=== PATIENT | female | born 2000 | race Caucasian/White ===

== ENCOUNTER 2021-04-03 09:01 | Emergency (ER) | payer OTHER, SELFPAY ==
[2021-04-03 09:15] VITALS: BP 104/58; PULSE 100; RESP 16; TEMP 36.3; O2SAT 100
--- OUTSIDE RECORDS SUMMARY | 2021-04-03 09:24 | XMS_ITS ---
:2000 Author Organization [facility] Address [address] [place] [id number] Care Team Providers Name Role Phone Unavailable Primary Care Physician Unavailable Lyla Echevarria Unavailable Unavailable Allergies and Adverse Reactions Name Reaction Notes NO KNOWN DRUG ALLERGIES - Phreesia 02/22 Medications Active Name Start Date Estimated Completion SIG Comment s Date tramadol 50 mg oral 02/29/2020 take 1 tablet (50 tablet mg) by oral route every 4-6 hours as needed Problem List Description Status Onset Flexor tendon laceration of finger with open wound Active 02/24/2020 Status post surgery Active 03/07/2020 Vital Signs Date Time BP-Sys(mm[Hg] BP-Daxa(mm[Hg]) HR(bpm) RR(rpm) Temp WT HT HC BMI BSA BMI O2 Percentile Sat( %) 4:37: 110 61 20.7 1.46 2020 00 PM lbs in 841 54 kg/m m2 2 Social History Name Description Comments Tobacco Never smoker - Phreesia 0 Alcohol Use Never - Phreesia 0 Single - Phreesia 0 History of Procedures Date Ordered Description Order Status 02/24/2020 12:00 AM AUTH Surgery Reviewed History of Past Illness Name Date of Onset Comments none - Phreesia 0 Flexor tendon laceration of finger with 02/24/2020 open wound Status post surgery 03/07/2020 Laceration of flexor muscle, fascia and Feb 24 2020 3:16PM tendon of unspecified finger at forearm level, initial encounter Laceration of flexor muscle, fascia and Mar 07 2020 10:57AM tendon of unspecified finger at forearm level, initial encounter Unspecified open wound of unspecified Mar 07 2020 10:57AM finger without damage to nail, initial encounter Status post surgery Mar 07 2020 10:57AM Laceration of flexor muscle, fascia and Mar 07 2020 11:15AM tendon of unspecified finger at forearm level, initial encounter Unspecified open wound of unspecified Mar 07 2020 11:15AM finger without damage to nail, initial encounter Status post surgery Mar 07 2020 11:15AM Laceration of flexor muscle, fascia and Mar 10 2020 2:33PM tendon of unspecified finger at forearm level, initial encounter Unspecified open wound of unspecified Mar 10 2020 2:33PM finger without damage to nail, initial encounter Status post surgery Mar 10 2020 2:33PM Laceration of flexor muscle, fascia and Apr 13 2020 10:28AM tendon of unspecified finger at forearm level, initial encounter Unspecified open wound of unspecified Apr 13 2020 10:28AM finger without damage to nail, initial encounter Status post surgery Apr 13 2020 10:28AM Payers Insurance Name Company Name Plan Name Plan Number Policy Number Policy Start Date Group Number Medicaid Medicaid [id number] N/A History of Encounters Visit Date Visit Type Provider 04/13/2020 Office Visits Pedro Pablo Walker MD 03/10/2020 Office Visits Pedro Pablo Walker MD 03/07/2020 Office Visits Pedro Pablo Walker MD 03/01/2020 ASC Pedro Pablo Walker MD 02/24/2020 Office Visits Pedro Pablo Walker MD
--- OUTSIDE RECORDS SUMMARY | 2021-04-03 09:24 | XMS_ITS ---
:2000 Author Care Team Providers Name Role Phone Rupali Gabrielbeth Primary Care Provider Unavailable Allergies Code Code System Name Reaction Severity Status Onset NKDA ? Medications Name Status Start Date Stop Date ? ? Condoms-Candelario Lubricated Active ? Not avai lable Use as needed for STI prevention. ibuprofen 800 mg tablet Active ? Not avai lable 1 tab tid for pain prn Mifeprex 200 mg tablet Active ? Not avail able Take by oral route. misoprostol 200 mcg tablet Active ? Not a vailable Take 4 tablets every day by oral route for 1 day. promethazine 25 mg tablet Active ? Not av ailable Take 1 tablet every 4 hours by oral route as needed. Problems No Known Problems Procedures Date Name Performed by ? 07/02/2019 Appendectomy Information not avai lable 01/23/2019 US, Pelvis, Limited [facility] Clia: [id number] [address] [place] [address] (Work Place) 12/13/2019 US, Pelvis, Limited [facility] Clia: [id number] [address] [place] [address] (Work Place) Results Lab Results Date Name Specimen Result Interpretation Description Value Range Status Address ? 12/13/2019 CT + NG UR ? Chlamydia not detected not Fi nal [facility] DNA, PCR, detected (Cl-0 462): Urine [address], [place] ? ? UR ? Gonorrhea not detected not Final [facility] detected (Cl-0462 ): [address], [place] 01/23/2019 CT + NG CVX ? Chlamydia not detected not Fi nal [facility] DNA, PCR, detected (Cl-0 462): Cervical [address], [place] ? ? CVX ? Gonorrhea not detected not Final [facility] detected (Cl-0462 ): [address], [place] 01/23/2019 Biopsy, Tissue ? Pathologist ? ? Final [facility] - [facility] b: [address] 01/23/2019 Surgical ? A Source ? ? Final Q uest Pathology Diagnos tics Study - [facility] : [address] ? ? ? A Gross ? ? Final [facility] Description Diagn ostics - [facility] : [address] ? ? ? A Diagnosis ? ? Final Ques t Diagnostic s - [facility] : [address] 01/23/2019 Exam under ? Type of Moderate ? ? In-Office Anesthesia Anesthesia Or antwon: (PROC) Given Internal U se Only DO No t Attach Compendium DO Not Attach Compendium , Do Not Delete/maría elena ge 01/23/2019 US, ? Interpretatio - ? ? [facility] Pelvis, n Definite Parenth ood Limited [facility] Clia: [id number] : [address], [place] ? US, ? Interpretatio - ? ? [facility] Pelvis, n Definite Parenth ood Limited [facility] Clia: [id number] : [address], [place] ? Hemoglobin ? Hgb 14.0 ? ? Plan[facility] d (Hb), [facility]ne [facility], Blood Cl-0610 Clia: [id number] : [address], [place] ? Rh Immune ? Rh Factor positive ? ? P lanned Globulin Parentho od Screening Of Sne Cl-0610 Clia: [id number] : [address], [place] ? ? Result positive ? ? Plan jakub Test, Test Pa renthood Urine Of Sne Cl[facility]0610 Clia: [id number] : [address], [place] ? ? ? Status Final ? ? Planned Test Pa renthood Of Sne [facility]10 Clia: [id number] : [address], [place] Past Encounters 12/13/2019 Termination of ; Blood Group Ty ping; Venereal Disease Screening; Sheath Contraception Maisha Gabriel, [employer]: [address] [place] [address], Ph. Social History Tobacco Smoking Status Never Smoker Vaccine List None recorded. Plan of Care Reminders Provider Appointments None ? ? recorded. Lab None ? ? recorded. Referral None ? ? recorded. Procedures None ? ? recorded. Surgeries None ? ? recorded. Imaging None ? ? recorded. Vitals 12/13/2019 09:00AM Medication Height 5 ft 1 in 01/18/2019 01:50PM Test Height Weight BMI Blood Pressure 5 ft 1 in 108 lbs 20.4 kg/m2 102/62 mm[Hg]
--- NOTE | 2021-04-03 09:32 | DI.US_ITS ---
Exam(s) US PELVIS EXAM: US PELVIS CLINICAL HISTORY: RLQ pain, hx of 4.3 cm right ovarian cyst TECHNIQUE: Ultrasound performed using standard protocol. COMPARISON: No exams were available for comparison FINDINGS: Pelvic ultrasound was performed transabdominally and transvaginally. Uterus measures 7.0 x 3.5 x 4.5 cm and has an unremarkable myometrial appearance, the endometrial str ipe is homogeneous and measures 3-4 millimeters in thickness. There is free fluid in the cul-de-sac and in the right adnexal region, question recently ruptured ova tony cyst. No right ovarian cyst identified. Right ovary measures 27 x 30 x 20 millimeters. Left o vary contains a 26 x 20 x 20 millimeter in diameter cyst with some low-level internal echoes. No Dop pler abnormality. Left ovary overall measures 59 x 42 x 59 millimeters. IMPRESSION: Findings suggestive of recently ruptured right ovarian cyst. Left ovarian simple cyst is noted with low-level internal echoes as well. DATA REPOSITORY:
[2021-04-03 09:41] LABS: Bilirubin Negative (Negative); Blood Trace-intact (Negative); Clarity Clear (Clear); Glucose Negative (Negative); Ketones Negative (Negative); Leukocyte Esterase Negative (Negative); Nitrite Negative (Negative); Specific Gravity 1.025 (1.005-1.025); Urobilinogen 0.2 EU/dL (Up TO 0.2)
[2021-04-03 09:51] LABS: Bacteria Rare HPF (Negative); C & S Indicated? No; Casts Negative LPF (Negative); Crystals Negative HPF (Negative); Epithelial Cells Few HPF (Negative); Mucus Moderate (Negative); WBC 0-2 HPF (0-5)
[2021-04-03] MEDS: ACETAMINOPHEN 1,000 MG/100 ML BTL 400 MG IVPB (09:59)
[2021-04-03 10:02] LABS: Abs Immature Grans 0.06 10^3/uL (0.0-0.06); Absolute Basophil Count 0.06 10^3/uL (0.0-0.2); Absolute Eosinophil Count 0.21 10^3/uL (0.0-0.7); Absolute Lymphocyte Count 2.42 10^3/uL (1.2-3.4); Absolute Monocyte Count 0.69 10^3/uL (0.1-0.8); Basophils % 0.6; Eosinophils % 2.2; HGB 12.7 g/dL (11.2-15.7); Immature Grans % 0.6; Lymphocytes % 25.4; MCH 30.4 pg (27.0-33.0); MCHC 32.6 % (32.0-36.0); MCV 93.3 fL (80-95); MPV 9.5 fL (8.0-11.0); Monocytes % 7.2; Nucleated RBC 0 %; Platelet Count 301 10^3/uL (130-400); RBC 4.18 10^6/uL (3.93-5.22); RDW 12.9 % (11.7-14.6); RDW-SD 44.4 fL; WBC 9.54 10^3/uL (4.4-10.8)
--- NOTE | 2021-04-03 10:05 | ED.GENADUL_ITS ---
Discharge Plan Disposition Patient Disposition: HOME Condition: Good Discharge Details Clinical Impression: Pelvic pain Primary Care Provider: Marianne,Local ED Provider: Cori Gutierrez Home Meds and New Rx's Prescriptions: No Action doxycycline hyclate 100 mg Capsule 100 mg PO BID RF: 0 Discharge Instructions Instructions: Ruptured Ovarian Cyst (ED) Additional Instructions: Take ibuprofen 600 mg every 8 hours with food for pain You may take Tylenol 650 to 1 g every 6 hours as needed for discomfort Warm compresses, activity as tolerated You do this now on your left ovary, I recommend repeat ultrasound evaluation in the next 2-3 cycles with your DISPLAY COORDINATOR doctor when you return home Should you have worsening pain, weakness, or with any new or progressing symptoms, please return to the emergency room for reevaluation Medical Decision Making Patient appears well, she reports symptomatic improvement Discussed radiology interpretation with Dr. De La Cruz, patient with free fluid in her pelvis likely consistent with ruptured ovarian cyst, made aware regarding left ovarian cyst, no evidence of torsion per radiology interpretation Patient declined need for opiate analgesia She will take ibuprofen and Tylenol, she is resting comfortably at time of reevaluation He did consider pelvic inflammatory disease and other concerning reasons for her pain, however given her recent diagnosis of right ovarian cyst with free fluid in her pelvis, I do suspect that this is likely the cause of her pain, she is not unstable at time of my evaluation, she is given low threshold to return should she have new or worsening complaints Hemodynamically stable Pain controlled at time of discharge home Repeat ultrasound in 2-3 cycles recommended test negative Lab Data Lab results reviewed: Yes I reviewed the patient's lab results. HPI General Mode of arrival: ambulatory . Date/Time Provider Initiated Documentation: 04/03/21 09:27 . Limitations to Documentation: no limitations . Information obtained by: patient . HPI Narrative: This 20-year-old female presents with right lower quadrant abdominal pain. She states that her pain started abruptly during intercourse this morning. She states it radiates through to her back. She denies any fever or chills. She denies chest pain or shortness of breath. She denies any nausea or vomiting. The pain is been constant since onset about 3:00. She describes the pain as sharp. Denies history of similar pain in the past. 6 600 mg of ibuprofen prior to arrival. Last menstrual period ended 3 days ago denies chance of . Sexually active monogamous with her partner of 6 years. Denies any urinary complaints. Status post appendectomy several years ago. Related Data Home Medications Medication Instructions Recorded Confirmed doxycycline hyclate 100 mg PO BID 04/03/21 04/03/21 Allergies Allergy/AdvReac Type Severity Reaction Status Date / Time No Known Allergies Allergy Unverified 04/03/21 09:21 General Stated Complaint: DISPLAY COORDINATOR ERNESTINE: 3 Review of Systems All systems reviewed & are unremarkable except as noted in HPI and below PFSH Social History Smoking/Tobacco Use Status: Current every day Tobacco Type: e-cigarettes Smoking risk assessment performed?: Yes Alcohol Intake: never Drug use: Daily Substance use type: marijuana Do you feel safe at home: Yes Do you feel safe in your relationship?: Yes Exam Const General: cooperative, comfortable and no acute distress Eyes Sclera: sclerae normal Resp Effort & Inspection: normal respiratory effort Cardio Rate: regular rate GI Other: Right lower quadrant abdominal tenderness, no rebound or guarding, suprapubic tenderness, no CVA tenderness Skin General skin exam: no rashes or lesions noted Neuro General: patient alert and patient oriented x3 Psych Appearance: grossly normal Course Vital Signs Vital signs: Vital Signs Temperature 36.3 C L 04/03/21 09:15 Pulse 100 H 04/03/21 09:15 Respiratory Rate 16 04/03/21 09:15 Blood Pressure 104/58 L 04/03/21 09:15 Pulse Oximetry 100 04/03/21 09:15 Temperature 36.3 C L 04/03/21 09:15 Temperature Source Skin 04/03/21 09:15 Pulse 100 H 04/03/21 09:15 Respiratory Rate 16 04/03/21 09:15 Respiratory Effort Non-Labored 04/03/21 09:15 Blood Pressure 104/58 L 04/03/21 09:15 Blood Pressure Position Standing 04/03/21 09:15 Pulse Oximetry 100 04/03/21 09:15 Oxygen Delivery Method Room Air 04/03/21 09:15 Oxygen Flow Rate 0 04/03/21 09:15 Pain Level 7 04/03/21 09:15 Lab/Test Results Lab/Test Results: Laboratory Tests Range/Units 04/03/21 09:30 Urine Color (Yellow) Yellow Urine Clarity (Clear) Clear Urine pH (5-8) 7.0 Ur Specific [place] (1.005-1.025) 1.025 Urine Protein (Negative) mg/dL Negative Urine Ketones (Negative) mg/dL Negative Urine Blood (Negative) Trace-intact H Urine Nitrite (Negative) Negative Urine Bilirubin (Negative) Negative Urine Urobilinogen (Up TO 0.2) EU/dL 0.2 Ur Leukocyte Esterase (Negative) Negative Urine RBC (0-2) HPF Urine WBC (0-5) HPF 0-2 Ur Epithelial Cells (Negative) HPF Few Urine Crystals (Negative) HPF Negative Urine Bacteria (Negative) HPF Rare Urine Casts (Negative) LPF Negative Urine Mucus (Negative) Moderate Ur Culture Indicated? No Urine Glucose (Negative) mg/dL Negative POC- Test(urine) Negative
[2021-04-03 10:15] LABS: ALT 20 U/L (14-59); AST 14 U/L (15-37); Albumin 3.9 g/dL (3.4-5.0); Alkaline Phosphatase 45 U/L (46-116); Anion Gap 6.8 mmol/L (3-11); BUN 10 mg/dL (7-18); Bilirubin, Total 0.6 mg/dL (0.2-1.0); CO2 28.2 mmol/L (21.0-32.0); CREATININE 0.7 mg/dL (0.55-1.02); Chloride 105 mmol/L (98-107); Glucose 88 mg/dL (74-106); Potassium 4.1 mmol/L (3.5-5.1); Sodium 140 mmol/L (136-145); Total Protein 7.3 g/dL (6.4-8.2)
[2021-04-03] MEDS: Ketorolac 15 MG/ML VIAL IVP (12:11)
[2021-04-03 12:13] VITALS: BP 107/47; PULSE 78; RESP 16; TEMP 36.5; O2SAT 100
== END 2021-04-03 12:39 | disposition home or self-care (01) ==
PROVIDERS: Emergency Provider Physician Assistant
DX: R10.2 Pelvic and perineal pain (principal); N83.202 Unspecified ovarian cyst, left side
CPT/HCPCS: 80053; 81025; 96374; 96375; 99284; 76856; 81003; 81015; 85025; 99283; J0131; J1885